=== PATIENT | male | born 1940 | race Caucasian/White ===

== ENCOUNTER 2016-09-21 07:51 | Day surgery (SDC) | payer MEDICARE, OTHER ==
[2016-09-20 09:53] LABS: HEMATOCRIT 41.1 % (40.0-51.0); HEMOGLOBIN 14.4 g/dL (13.6-17.8)
[2016-09-20 10:10] LABS: BUN (BLOOD UREA NITROGEN) 18 MG/DL (6-23); CALCIUM, SERUM 8.7 MG/DL (8.5-10.4); CHLORIDE, SERUM 108 MMOL/L (96-112); CO2 (CARBON DIOXIDE) 28 MMOL/L (24-34); CREATININE 1.24 MG/DL (0.70-1.30); GFR AFRICAN AMERICAN 66 ML/MIN (>=60); GFR NON AFRICAN AMERICAN 57 ML/MIN (>=60); GLUCOSE, SERUM 97 MG/DL (60-99); POTASSIUM, SERUM 4.7 MMOL/L (3.5-5.3); SODIUM, SERUM 140 MMOL/L (135-148)
--- NOTE | ~2016-09-21 | OP ---
Record Of Operation [facility] [address] [place]. [address] NAME: HIMANSHU LLOYD : 44 STATUS : [facility]#: [id number] AGE: 75 ADM/REG DATE : 09/21/16 MR#: [id number] REPORT SERV DATE: 09/21/16 DICTATED BY: NIKITA OTT DATE: 09/21/16 REPORT STATUS : Draft TRANSCRIBED BY: MODGlenna DATE: 09/21/16 DATE OF PROCEDURE: 09/21/2016 PREOPERATIVE DIAGNOSES: 1. Large incarcerated left inguinal hernia. 2. History of robotic prostatectomy for cancer. 3. Obstructive sleep apnea with CPAP. 4. Obesity with a BMI 30.2. POSTOPERATIVE DIAGNOSES: 1. Large incarcerated left inguinal hernia. 2. History of robotic prostatectomy for cancer. 3. Obstructive sleep apnea with CPAP. 4. Obesity with a BMI 30.2. PROCEDURE: Robotic incarcerated indirect left inguinal hernia repair with mesh. ANESTHESIA: General. SURGEON: Nikita Ott M.D. ENVIRONMENTAL HEALTH AND SAFETY MANAGER: Sohail. COMPLICATIONS: None. DRAINS: None. ESTIMATED BLOOD LOSS: 20 mL. FINDINGS: The patient was noted to have a large incarcerated indirect inguinal hernia with colon and a large lipoma of the cord incarcerated in the defect that were reduced. OPERATIVE TECHNIQUE: The patient was brought to the operating room and placed on the table in supine position. He had preoperative IV antibiotics. He had sequential hose in place. He voided prior to procedure. He underwent general endotracheal anesthesia, and was prepped and draped in sterile fashion. A time-out was completed. Local anesthesia was instilled to the supraumbilical skin. A 15 blade knife was used to make a supraumbilical incision. The Veress needle was inserted and water drop test was safely performed. A 12 mm trocar was inserted into the abdomen followed by the laparoscope. There was no evidence of Veress or trocar injury. The patient then had right and left midclavicular line 8 mm robotic trocars placed parallel with the camera trocar under direct visualization. The patient then had the patient cart brought to the bedside and the trocars were docked. The instruments were then inserted. The procedure began as the abdomen was explored, there were some adhesions of the sigmoid colon to the anterior abdominal wall. These were taken down with scissors without cautery without difficulty, and the colon was then reduced out of the direct indirect inguinal defect using blunt dissection. At this point, the peritoneum was scored at the Record Of Operation [facility] [address] [place]. [address] NAME: HIMANSHU LLOYD : 44 STATUS : [facility] PAT#: [id number] AGE: 75 ADM/REG DATE : 09/21/16 MR#: [id number] REPORT SERV DATE: 09/21/16 DICTATED BY: NIKITA OTT DATE: 09/21/16 REPORT STATUS : Draft TRANSCRIBED BY: MODL DATE: 09/21/16 median umbilical ligament high on the anterior abdominal wall, and this was extended toward the anterior iliac spine. The posterior peritoneum was then carefully bluntly dissected laterally until iliopubic tract, and transversus arch were identified over the cord, and medially until Zach's ligament, iliopubic tract, and transversus arch were identified. The inferior epigastric vessels were then identified and preserved throughout the procedure. The large incarcerated indirect inguinal hernia sac was then carefully dissected away using blunt dissection, and careful traction with a scissor and a grasper. This dissection continued circumferentially until the hernia sac was completely dissected away from the vas and neurovascular structures. It was reduced several centimeters proximal to where the vas joined the cord structures and was visualized to ensure it was all reduced. At this point, the appropriate mesh was placed in the operative field. It was positioned to cover the entire myopectineal space on the left and extended approximately 1 to 2 cm below the Zach's ligament and over the cord with no peritoneum where the mesh was adherent. It was then completely unfolded into position to cover the entire defective space. The peritoneum was then reapproximated using a V-Loc suture. There was no undue tension. The pneumoperitoneum was reduced to eight for closure. There was no evidence of any other visual abnormalities or other hernias, and all the instruments and trocars were removed after a suture passer was used to close the 12 mm trocar site. It was also closed anteriorly with a [id number] Vicryl 0 suture. The skin edges were reapproximated using interrupted subcuticular Monocryl sutures. Dermabond was applied. He was extubated and taken to the recovery room in stable condition. All sponge and needle counts reported correct. MIREYA/KAYLEY Nikita Ott M.D. / [id number] CC: Devang Loza M.D.
[~2016-09-21 07:51] MED LIST: ADVIL PO; CENTRUM PO; FISH-EPA1000 MG PO; GENTEA2 OPH; HALF81 PO; MVI PO; PEP20 PO; REFRESH PLUS O0.4 ML OPH
== END 2016-09-21 16:35 | disposition home or self-care (01) ==
LOC: SDC 07:51
PROVIDERS: Surgery
PROC: 8E0W0CZ Robotic Assisted Procedure of Trunk Region, Open Approach (ICD-10-PCS; 2016-09-21)
PROC: 0YU60JZ Supplement Left Inguinal Region with Synthetic Substitute, Open Approach (ICD-10-PCS; principal; 2016-09-21 09:30)
DX: K40.90 Unilateral inguinal hernia, without obstruction or gangrene, not specified as recurrent (principal); G47.33 Obstructive sleep apnea (adult) (pediatric); M19.90 Unspecified osteoarthritis, unspecified site; E66.9 Obesity, unspecified; Z68.30 Body mass index [BMI] 30.0-30.9, adult; Z85.46 Personal history of malignant neoplasm of prostate; Z90.79 Acquired absence of other genital organ(s); Z87.891 Personal history of nicotine dependence
CPT/HCPCS: 80048; 85014; 85018; 93005; A9270-GY; C1781; J0690; J1885; J2250; J2405; J2710; J3010